=== PATIENT | female | born 1965 | race Caucasian/White ===

== ENCOUNTER 2022-06-07 23:26 | Emergency (ER) | payer MEDICARE, MEDICAID, SELFPAY ==
[2022-06-07 23:27] VITALS: BP 137/80; PULSE 100; RESP 18; TEMP 39.1; O2SAT 95; BMI 31.6
[2022-06-07 23:30] VITALS: BP 140/82; PULSE 98; O2SAT 94
[2022-06-08 00:01] VITALS: BP 120/76; PULSE 98; O2SAT 95
[2022-06-08 00:20] VITALS: BP 120/76; PULSE 98; RESP 22; TEMP 38.8; O2SAT 95
[2022-06-08 00:44] LABS: Basophils % 0.2 % (0.1-2.0); Eosinophils # 0.1 K/mm3 (0.0-0.4); Eosinophils % 0.7 % (0.1-12.0); Hematocrit 40.4 % (37.0-47.0); Hemoglobin 13.4 g/dL (12.2-16.2); Lymphocytes # 0.1 K/mm3 (0.7-4.5); Lymphocytes % 1.3 % (10-50); Mean Corpuscular HGB Conc 33.2 g/dL (31.8-35.4); Mean Corpuscular Hemoglobin 31.5 pg (27.0-31.2); Mean Corpuscular Volume 94.6 fl (81-99); Mean Platelet Volume 8.5 fl (7.4-10.4); Monocytes # 0.3 K/mm3 (0.1-1.0); Monocytes % 2.7 % (1.7-9.3); Neutrophils % 95.1 % (37.0-80.0); Platelet Count 237 K/mm3 (142-424); Red Blood Count 4.27 M/mm3 (4.20-5.40); Red Cell Distribution Width 14.7 % (11.5-17.5); White Blood Count 9.5 K/mm3 (4.8-10.8)
--- NOTE | 2022-06-08 00:48 | PC.NURSE ---
0025 francesco notified of 102.4 fever asked to put in [facility] orders and verified tylenol 1000g
[2022-06-08 00:50] LABS: Anion Gap 15.3 mEq/L (5-15); Bilirubin,Total 0.7 mg/dl (0.2-1.3); Blood Urea Nitrogen 18 mg/dl (7-17); Carbon Dioxide 28 mmol/L (22.0-30.0); Chloride 97 mmol/L (98-107); Creatinine Clearance Estimated 119 mL/min (50-200); Estimated Glomerular Filt Rate 86 ml/min (>60); GFR (African American) 104 ML/MIN (>60); Glucose 105 mg/dl (74-100); Potassium 4.3 mmoL/L (3.5-5.1); Sodium 136 mmol/L (136-145)
[2022-06-08 00:52] LABS: Microscopic, Urine URINE MICROSCOPIC (MICROSCOPIC)
[2022-06-08 00:55] LABS: Appearance,Urine SL CLOUDY (Clear); Bilirubin,Urine Negative (Negative); Blood, Urine 1+ (Negative); Color,Urine YELLOW (Yellow); Glucose,Urine (UA) Negative (Negative); Ketones,Urine Negative (Negative); Leukocyte Esterase,Urine 1+ (Negative); Nitrate,Urine POSITIVE (Negative); Protein,Urine Negative (Negative); Urobilinogen,Urine 0.2 EU/dl (0.2)
[2022-06-08 00:58] LABS: Lactic Acid 2.2 mmol/L (0.7-2.1); MANUAL DIFFERENTIAL MANUAL DIFFERENTIAL (MANUAL DIFF)
[2022-06-08 01:21] LABS: Bacteria,Urine 3+ /lpf; Mucus,Urine 1+ /lpf
[2022-06-08 02:28] LABS: Lymphocytes % 1 % (10-50); Neutrophils % 97 % (42-76); Platelet Estimate Normal; Stomatocytes 1+; Total Cells Counted 100
== END 2022-06-08 01:05 | disposition left against medical advice (07) ==
PROVIDERS: Emergency Provider Emergency Medicine
DX: R53.1 Weakness (principal); R50.9 Fever, unspecified; Z53.21 Procedure and treatment not carried out due to patient leaving prior to being seen by health care provider; Z79.899 Other long term (current) drug therapy; Z88.2 Allergy status to sulfonamides
CPT/HCPCS: 80048; 81001; 82247; 83605; 85007; 85025; 87040; 87077; 87086; 87088; 87186; 99211